=== PATIENT | male | born 1940 | race Caucasian/White ===

== ENCOUNTER 2019-03-21 10:07 | Emergency (ER) | payer MEDICARE ==
[2019-03-21 10:41] VITALS: BP 147/61
[2019-03-21] MEDS ORDERED: Acetaminophen TAB* 325 MG PO ONE (10:57)
[2019-03-21 11:11] LABS: Influenza A Molecular NEGATIVE (Negative); Influenza B Molecular NEGATIVE (Negative)
--- NOTE | 2019-03-21 11:13 | UC ---
FLU HPI - HPI Summary HPI Summary: Pt presents with c/o sudden onset of scratchy throat, then fever, chills body aches X 4 days. Pt also c/o cough that is worse at night. - History of Current Complaint Chief Complaint: UCRespiratory Stated Complaint: FEVER, CONGESTION Time Seen by Provider: 03/21/19 10:14 Hx Obtained From: Patient Onset/Duration: Sudden Onset, Lasting Days, Still Present, Worse Since - onset Severity Currently: Mild Severity Initially: Moderate Pain Intensity: 4 Associated Signs & Symptoms: Positive: Fever, Myalgia, Cough, Nasal Congestion Related Hx: Possible Flu/Infectious Exposure - Risk Factors Influenza Risk Factors: Age 65 y/o or Older - Allergy/Home Medications Allergies/Adverse Reactions: Allergies Allergy/AdvReac Type Severity Reaction Status Date / Time latex Allergy Unknown Rash Verified 03/21/19 10:26 Penicillins Allergy Unknown itchy rash Verified 03/21/19 10:26 Home Medications: Home Medications Apixaban* [Eliquis*] 5 mg PO BID 03/21/19 [History Confirmed 03/21/19] Chlorphen/Phenyleph/Dm/Aspirin [Susan-Pendleton Plus C-C Tab Eff] 1 tab PO PRN [History] Digoxin TAB* [Lanoxin TAB*] 0.125 mg PO DAILY 03/21/19 [History Confirmed ] Diltiazem TAB* [Cardizem 60 MG Tab*] 120 mg PO DAILY 03/21/19 [History Confirmed 03/21/19] Famotidine TAB* [Pepcid 20 MG TAB*] 20 mg PO BID 03/21/19 [History Confirmed ] Fluticasone NASAL SPRAY 50MCG* [Flonase NASAL SPRAY 50MCG*] 2 spray BOTH NARES DAILY 03/21/19 [History Confirmed 03/21/19] Furosemide TAB* [Lasix TAB*] 20 mg PO DAILY 03/21/19 [History Confirmed 03/21/19 ] GuaiFENesin DM* [Robitussin DM*] 10 ml PO Q6H PRN 03/21/19 [History Confirmed ] Lisinopril TAB* [Prinivil TAB 10 MG*] 10 mg PO DAILY 03/21/19 [History Confirmed 03/21/19] Sildenafil (NF) [Viagra (NF)] 12.5 mg PO PRN 03/21/19 [History] Zolpidem TAB* [Ambien*] 5 mg PO BEDTIME PRN 03/21/19 [History Confirmed 03/21/19 ] metFORMIN* [Glucophage 500 MG TAB *] 1,000 mg PO DAILY 03/21/19 [History Confirmed 03/21/19] PMH/Surg Hx/FS Hx/Imm Hx Previously Healthy: Yes Cardiovascular History: Cardiac Disease, Atrial Fibrillation - Surgical History Surgical History: Yes Surgery Procedure, Year, and Place: [facility]. CHOLYCYSTECTOMY - Family History Known Family History: Positive: Cardiac Disease - Social History Occupation: Retired Lives: With Family Alcohol Use: Rare Substance Use Type: None Smoking Status (MU): Former Smoker Type: Cigarettes Have You Smoked in the Last Year: No When Did the Patient Quit Smoking/Using Tobacco: 27 YS AGO - Immunization History Most Recent Influenza Vaccination: 03/08/19 Vaccination Up to Date: Yes Review of Systems All Other Systems Reviewed And Are Negative: Yes Constitutional: Positive: Fever, Chills, Fatigue Skin: Positive: Negative Eyes: Positive: Negative ENT: Positive: Sinus Congestion Respiratory: Positive: Cough Cardiovascular: Positive: Palpitations - has hx of afib Gastrointestinal: Positive: Negative Genitourinary: Positive: Negative Motor: Positive: Negative Neurovascular: Positive: Negative Musculoskeletal: Positive: Myalgia Neurological: Positive: Negative Psychological: Positive: Negative Is Patient Immunocompromised?: No Physical Exam Triage Information Reviewed: Yes Appearance: Ill-Appearing Vital Signs: Initial Vital Signs Temp 101.7 F 03/21/19 10:33 Pulse 79 03/21/19 10:33 Resp 24 03/21/19 10:33 BP 147/61 03/21/19 10:33 Pulse Ox 97 03/21/19 10:33 Vital Signs Reviewed: Yes Eye Exam: Normal ENT: Positive: Nasal congestion Dental Exam: Normal Neck exam: Normal Respiratory: Positive: No respiratory distress, Decreased breath sounds Cardiovascular: Positive: Other: - regular irregualr rhythm. Musculoskeletal Exam: Normal Neurological Exam: Normal Psychological Exam: Normal Skin Exam: Normal Flu Course/Dx - Differential Dx/Diagnosis Differential Diagnosis/HQI/PQRI: Influenza, Pneumonia, Upper Respiratory Infection Provider Diagnosis: Pneumonia Discharge ED - Sign-Out/Discharge Documenting (check all that apply): Patient Departure All imaging exams completed and their final reports reviewed: No Studies - Discharge Plan Condition: Stable Disposition: HOME Prescriptions: Benzonatate CAP* [Tessalon 100 MG CAP*] 200 mg PO Q8H PRN #30 cap PRN Reason: Cough DOXYcycline CAP(*) [DOXYcycline 100MG CAP(*)] 100 mg PO Q12H #20 cap Patient Education Materials: Pneumonia (ED) Referrals: Karissa Leyva PA [Primary Care Provider] - 2 Days - Billing Disposition and Condition Condition: STABLE Disposition: Home
== END 2019-03-21 11:38 | disposition home or self-care (01) ==
LOC: UCCORT 10:07
DX: J18.9 Pneumonia, unspecified organism (principal); Z88.0 Allergy status to penicillin; I48.91 Unspecified atrial fibrillation; Z87.891 Personal history of nicotine dependence
CPT/HCPCS: 99202; A9270-GY; G0463